=== PATIENT | male | born 1980 | race Hispanic/Latino ===

== ENCOUNTER 2018-02-20 18:36 | Emergency (ER) | payer SELFPAY ==
--- NOTE | 2018-02-20 20:39 | EDPHYS ---
Physician Documentation [facility] Name: Saul Pereira Jr Age: 37 yrs Sex: Male : 1980 Arrival Date: 02/20/2018 Time: 18:41 Bed 14 Private MD: ED Physician Eduardo Wallace HPI: 02/20 20:14 This 37 yrs old Male presents to ER via Ambulatory with complaints of Pain cp With Urination. 20:14 The patient presents with a possible STD exposure. cp 20:14 Patient reports having unprotected intercourse with new partner recently and for past 4 cp days reports burning with urination. Historical: - Allergies: 18:49 No Known Allergies; aj - Home Meds: 18:49 None [Active]; aj - PMHx: 18:49 None; aj - PSHx: 18:50 hip replacement; aj - Immunization history:: Adult Immunizations up to date. - Social history:: Smoking status: Patient uses tobacco products, denies chronic smoking, but will smoke occasionally, Patient uses alcohol, weekly. ROS: 20:18 Constitutional: Negative for body aches, chills, fever, poor PO intake. cp 20:18 Eyes: Negative for injury, pain, redness, and discharge. cp 20:18 ENT: Negative for drainage from ear(s), ear pain, sore throat, difficulty swallowing, difficulty handling secretions. 20:18 Cardiovascular: Negative for chest pain, edema, palpitations. 20:18 Respiratory: Negative for cough, shortness of breath, wheezing. 20:18 Abdomen/GI: Negative for abdominal pain, vomiting, diarrhea, constipation, black/tarry stool, rectal bleeding. 20:18 : Positive for burning with urination, penile pain, Negative for hematuria, penile discharge. 20:18 Skin: Negative for cellulitis, rash. 20:18 All other systems are negative. Exam: 20:22 Constitutional: The patient appears in no acute distress, alert, awake, well developed, cp well nourished. 20:22 Head/Face: Normocephalic, atraumatic. cp 20:22 Eyes: Periorbital structures: appear normal, Conjunctiva: normal, no exudate, no injection, Lids and lashes: appear normal, bilaterally. 20:22 ENT: External ear(s): are unremarkable, Nose: is normal, Mouth: is normal. 20:22 Chest/axilla: Inspection: normal. 20:22 Cardiovascular: Rate: normal, Rhythm: regular. 20:22 Respiratory: the patient does not display signs of respiratory distress, Respirations: normal, no use of accessory muscles, no retractions, no splinting, no tachypnea. 20:22 Abdomen/GI: Exam negative for discomfort, distension, guarding, Inspection: abdomen appears normal. 20:22 : Male external genitalia: Circumcision noted. swelling: is not appreciated, tenderness, is not appreciated. 20:22 Skin: cellulitis, is not appreciated, no rash present. Vital Signs: 18:50 BP 153 / 99; Pulse 85; Resp 17; Temp 98.2; Pulse Ox 98% on R/A; Weight 90.72 kg; Height aj 5 ft. 8 in. (172.72 cm); Pain 10/10; 18:50 Body Mass Index 30.41 (90.72 kg, 172.72 cm) aj MDM: 19:55 Patient medically screened. cp 20:15 Differential diagnosis: UTI, urinary retention, urethritis, STD. cp 20:37 Data reviewed: vital signs, nurses notes, and as a result, I will discharge patient. cp 20:37 Counseling: I had a detailed discussion with the patient and/or guardian regarding: the cp historical points, exam findings, and any diagnostic results supporting the discharge/admit diagnosis, to return to the emergency department if symptoms worsen or persist or if there are any questions or concerns that arise at home. 02/20 20:05 Order name: Urine Dipstick--Ancillary (enter results); Complete Time: 20:58 em1 02/20 20:58 Interpretation: Reviewed. cp 02/20 20:05 Order name: Urine Dipstick-Ancillary (obtain specimen); Complete Time: 20:05 em1 Administered Medications: 21:08 Drug: Zithromax 1 grams Route: PO; ao 21:15 Follow up: Response: No adverse reaction ao 21:15 Drug: Rocephin (cefTRIAXone) 250 mg Route: IM; Site: left gluteus; ao 21:16 Follow up: Response: No adverse reaction ao Disposition: 02/21 14:29 Co-signature as Attending Physician, Eduardo Wallace MD I agree with the assessment and reid plan of care. Disposition: 02/20/18 20:38 Discharged to Home. Impression: Encounter for screening for infections with a predominantly sexual mode of transmission. - Condition is Stable. - Discharge Instructions: Sexually Transmitted Disease, Health Maintenance, Males. - Medication Reconciliation Form, Thank You Letter, Antibiotic Education, Prescription Opioid Use form. - Follow up: Private Physician; When: 2 - 3 days; Reason: if symptoms continue. - Problem is new. - Symptoms are unchanged. Signatures: Dispatcher [employer] Jazmín López, RN Eduardo Bajwa MD MD cha Martinez, Eric em1 Eduardo Navarro PA PA cp Ortiz, Alex RN AWILDA agarwal
--- NOTE | 2018-02-20 20:39 | ER ---
Nurse's Notes [facility] Name: Saul Pereira Jr Age: 37 yrs Sex: Male : 1980 Arrival Date: 02/20/2018 Time: 18:41 Bed 14 Private MD: Diagnosis: Encounter for screening for infections with a predominantly sexual mode of transmission Presentation: 02/20 18:48 Presenting complaint: Patient states: Penile burning since Saturday morning. Patient had aj unprotected sex on Saturday night. Denies discharge. Transition of care: patient was not received from another setting of care. Onset of symptoms was February 17, 2018. Initial Sepsis Screen: Does the patient meet any 2 criteria? No. Patient's initial sepsis screen is negative. Does the patient have a suspected source of infection? No. Patient's initial sepsis screen is negative. Care prior to arrival: None. 18:48 Method Of Arrival: Ambulatory aj 18:48 Acuity: KATE 4 aj Triage Assessment: 18:50 General: Appears in no apparent distress. comfortable, Behavior is cooperative, aj appropriate for age, anxious. Pain: Complains of pain in meatus. Neuro: Level of Consciousness is awake, alert, obeys commands, Oriented to person, place, time, situation, Appropriate for age. Respiratory: Airway is patent Respiratory effort is even, unlabored, Respiratory pattern is regular, symmetrical. : Reports pain in penis. Derm: Skin is intact, is healthy with good turgor, Skin is pink, warm \T\ dry. normal. Historical: - Allergies: 18:49 No Known Allergies; aj - Home Meds: 18:49 None [Active]; aj - PMHx: 18:49 None; - PSHx: 18:50 hip replacement; aj - Immunization history:: Adult Immunizations up to date. - Social history:: Smoking status: Patient uses tobacco products, denies chronic smoking, but will smoke occasionally, Patient uses alcohol, weekly. Screenin:57 Abuse screen: Denies threats or abuse. Denies injuries from another. Nutritional ao screening: No deficits noted. Tuberculosis screening: No symptoms or risk factors identified. Fall Risk None identified. Assessment: 19:54 General: Appears in no apparent distress. comfortable, Behavior is calm, cooperative, ao appropriate for age. Pain: Complains of pain in groin. Neuro: Level of Consciousness is awake, alert, obeys commands, Oriented to person, place, time, situation, Appropriate for age Moves all extremities. Speech is normal, Facial symmetry appears normal. Cardiovascular: Capillary refill < 3 seconds Patient's skin is warm and dry. Respiratory: Airway is patent Respiratory effort is even, unlabored, Respiratory pattern is regular, symmetrical. GI: Abdomen is non-distended. : Reports burning with urination, since Yesterday urgency, Burning sensation in the tip. EENT: No signs and/or symptoms were reported regarding the EENT system. Derm: Skin is pink, warm \T\ dry. normal. Musculoskeletal: No signs and/or symptoms reported regarding the musculoskeletal system. Range of motion: intact in all extremities. Vital Signs: 18:50 BP 153 / 99; Pulse 85; Resp 17; Temp 98.2; Pulse Ox 98% on R/A; Weight 90.72 kg; Height aj 5 ft. 8 in. (172.72 cm); Pain 10/10; 18:50 Body Mass Index 30.41 (90.72 kg, 172.72 cm) aj ED Course: 18:41 Patient arrived in ED. as 18:49 Triage completed. aj 18:50 Arm band placed on right wrist. Patient placed in waiting room, Patient notified of aj wait time. 19:54 Janusz Ricks, AWILDA is Primary Nurse. ao 19:54 Eduardo Navarro PA is PHCP. cp 19:54 Eduardo Wallace MD is Attending Physician. cp 19:58 Patient has correct armband on for positive identification. Pulse ox on. NIBP on. ao 21:16 No provider procedures requiring assistance completed. Patient did not have IV access ao during this emergency room visit. Administered Medications: 21:08 Drug: Zithromax 1 grams Route: PO; ao 21:15 Follow up: Response: No adverse reaction ao 21:15 Drug: Rocephin (cefTRIAXone) 250 mg Route: IM; Site: left gluteus; ao 21:16 Follow up: Response: No adverse reaction ao Outcome: 20:38 Discharge ordered by . cp 21:16 Discharged to home ambulatory. ao 21:16 Condition: stable 21:16 Discharge instructions given to patient, Instructed on discharge instructions, follow up and referral plans. Demonstrated understanding of instructions, follow-up care, medications. 21:17 Patient left the ED. ao Signatures: Jazmín Martinez, RN RN Anny Lange Corey, PA PA cp Ortiz, Alex, RN RN ao
[2018-02-20 20:49] LABS: Urine Blood NEGATIVE (NEG); Urine Glucose NEGATIVE (NEG); Urine Protein NEGATIVE (NEG); Urine pH 5.5 (5.0-7.0)
[2018-02-20] MEDS ORDERED: AZITHROMYCIN 250 MG TAB ONE (20:59)
[2018-02-20] MEDS ORDERED: CEFTRIAXONE 250 MG/VIAL ONE (20:59)
== END 2018-02-20 21:17 | disposition home or self-care (01) ==
LOC: ER 18:36
DX: Z11.3 Encounter for screening for infections with a predominantly sexual mode of transmission (principal); Z72.0 Tobacco use
CPT/HCPCS: 81003; 96372; 99283; J0696